=== PATIENT | female | born 1990 | race Caucasian/White ===

== ENCOUNTER 2022-10-21 16:01 | Outpatient (CLI) | payer OTHER, SELFPAY ==
[2022-10-21 20:18] LABS: Cholesterol 128 mg/dL (0-200); HDL Direct 59 mg/dL; Triglycerides 61 mg/dL (<150)
[2022-10-21 20:29] LABS: LDL Cholesterol Direct 49 mg/dL
[2022-10-21 20:49] LABS: Thyroid Stimulating Hormone 0.867 uIU/mL (0.465-4.680)
[2022-10-22 11:56] LABS: Folic Acid 5.8 ng/mL (2.76->20)
== END 2022-10-21 16:02 | disposition home or self-care (01) ==
LOC: ANHLAB 16:04
PROVIDERS: PCP Nurse Practitioner Family; Visit Provider Nurse Practitioner Family
DX: Z00.00 Encounter for general adult medical examination without abnormal findings (principal); Z13.6 Encounter for screening for cardiovascular disorders; Z13.29 Encounter for screening for other suspected endocrine disorder
CPT/HCPCS: 36415; 80061; 82607; 82746; 84443

== ENCOUNTER 2023-10-22 16:09 | Outpatient (CLI) | payer OTHER, SELFPAY ==
[2023-10-22 16:39] LABS: Appearance Urine Cloudy (Clear); Bacteria Urine None Seen /hpf; Basophils Percent Auto 0.4 % (0.2-1.2); Bilirubin Urine Negative (Negative); Color Urine Yellow (Yellow); Eosinophils Absolute Auto 0.1 K/mm3 (0-0.3); Eosinophils Percent Auto 0.8 % (0-4.4); Glucose Urine UA Negative (Negative); Hematocrit 44.2 % (37.0-47.0); Hemoglobin 14.7 g/dL (12.0-15.0); Immature Granulocyte Absolute 0.03 K/mm3 (0.00-0.031); Immature Granulocyte Percent A 0.4 % (0-0.5); Ketones Urine Negative (Negative); Leukocyte Esterase Ur Trace LEU/UL (NEGATIVE); Lymphocytes Percent Auto 24.7 % (18.3-44.2); Mean Corpuscular HGB Conc 33.3 g/dl (32-36); Mean Corpuscular Hemoglobin 30.1 pg (26-34); Mean Corpuscular Volume 90.4 fl (80-100); Mean Platelet Volume 11.1 fl (7.4-10.4); Monocytes Absolute Auto 0.6 K/mm3 (0.1-0.6); Monocytes Percent Auto 7.3 % (2.6-8.5); Neutrophils Absolute Auto 5.1 K/mm3 (1.3-6.7); Neutrophils Percent Auto 66.4 % (45.5-73.1); Nitrate Urine Negative (Negative); Non Pathogenic Casts 0-2; Platelet Count Result 249 k/mm3 (150-375); Protein Urine Negative (Negative); RBC Urine 21-50 /hpf (0-2); Red Blood Count 4.89 M/mm3 (4.2-5.4); Red Cell Distribution Width 12.7 % (11.5-14.5); Specific Grav Ur 1.018 (1.001-1.035); Squamous Epithelial Cell Urine Occasional /hpf (Few); White Blood Count 7.7 K/mm3 (4.5-10.0)
[2023-10-22 16:52] LABS: Add Urine Microscopic? YES
[2023-10-22 17:38] LABS: Vitamin D 25 Hydroxy 86.1 ng/mL
[2023-10-22 17:42] LABS: Alanine Aminotransferase 20 U/L (6-35); Albumin Level 4.5 g/dL (3.5-5.1); Alkaline Phosphatase 63 U/L (38-126); Anion Gap 9 mmol/L (8-16); Aspartate Amino Transferase 25 U/L (14-36); Bilirubin,Total 0.5 mg/dL (0.2-1.3); Blood Urea Nitrogen 9 mg/dL (7-17); Calcium 10.4 mg/dL (8.4-10.2); Carbon Dioxide 29 mmol/L (22-30); Chloride 102 mmol/L (98-107); Cholesterol 146 mg/dL (0-200); Estimated Glomerular Filt Rate > 60; Glucose 97 mg/dL (65-110); HDL Direct 64 mg/dL; Potassium 3.6 mmol/L (3.4-5.0); Sodium 140 mmol/L (137-145); Triglycerides 94 mg/dL (<150)
[2023-10-22 17:53] LABS: LDL Cholesterol Direct 66 mg/dL
[2023-10-22 18:11] LABS: Thyroid Stimulating Hormone 0.297 uIU/mL (0.465-4.680)
== END 2023-10-22 16:10 | disposition home or self-care (01) ==
LOC: ANHLAB 16:11
PROVIDERS: PCP Nurse Practitioner Family; Visit Provider Nurse Practitioner Family
DX: Z13.6 Encounter for screening for cardiovascular disorders (principal); E53.8 Deficiency of other specified B group vitamins; E55.9 Vitamin D deficiency, unspecified; Z13.0 Encounter for screening for diseases of the blood and blood-forming organs and certain disorders involving the immune mechanism; Z00.00 Encounter for general adult medical examination without abnormal findings; Z13.29 Encounter for screening for other suspected endocrine disorder
CPT/HCPCS: 36415; 80053; 80061; 81001; 82306; 82607; 84443; 85025

== ENCOUNTER 2023-10-28 15:47 | Outpatient (CLI) | payer OTHER, SELFPAY ==
[2023-10-28 18:50] LABS: Free T4 Free Thyroxine 1.04 ng/mL (0.78-2.19)
[2023-10-28 23:59] LABS: Thyroid Stimulating Hormone 0.531 uIU/mL (0.465-4.680)
[2023-10-29 00:10] LABS: Total Triiodothyronine (T3) 1.37 NG/ML (0.97-1.69)
== END 2023-10-28 15:48 | disposition home or self-care (01) ==
LOC: ANHLAB 15:48
PROVIDERS: PCP Nurse Practitioner Family; Visit Provider Nurse Practitioner Family
DX: R79.89 Other specified abnormal findings of blood chemistry (principal); E83.52 Hypercalcemia
CPT/HCPCS: 36415; 84439; 84443; 84480

== ENCOUNTER 2023-11-01 09:17 | Outpatient (CLI) | payer OTHER, SELFPAY ==
[2023-11-01 10:12] LABS: Parathyroid Intact 79.1 pg/mL (7.5-53.5)
== END 2023-11-01 09:18 | disposition home or self-care (01) ==
PROVIDERS: PCP Nurse Practitioner Family; Visit Provider Nurse Practitioner Family
DX: E83.52 Hypercalcemia (principal)
CPT/HCPCS: 36415; 82330; 83970

== ENCOUNTER 2023-11-08 17:55 | Emergency (ER) | payer OTHER, SELFPAY ==
[2023-11-08] VITALS (10 sets, daily range): BP systolic 128–133; BP diastolic 68–96; PULSE 79–114; RESP 13–23; TEMP 36.3; O2SAT 96–100
--- NOTE | ~2023-11-08 | XR_ITS ---
EXAMINATION: XR chest 2V Exam Date/Time: 11/08/2023 21:10 HSE COORDINATOR HISTORY: cp, PALPITATIONS Comparison: 09/13/2015. RESULT: Lines, tubes, and devices: None. Lungs and pleura: Clear. Cardiomediastinal silhouette: Stable. Other: No acute osseous or upper abdominal finding. IMPRESSION: No acute cardiopulmonary process. Reviewed, dictated and finalized at location K. COORDINATOR
--- NOTE | 2023-11-08 17:56 | ECG_ITS ---
Measurements Intervals [place] Rate: 115 P: 62 WA: 157 QRS: -57 QRSD: 91 T: 52 QT: 316 QTc: 437 Interpretive Statements SINUS TACHYCARDIA POSSIBLE LEFT ATRIAL ENLARGEMENT [-0.1mV P WAVE IN V1/V2] PATTERN CONSISTENT WITH PULMONARY DISEASE LEFT ANTERIOR FASCICULAR BLOCK [QRS AXIS <= -45, QR IN I, RS IN II] MINIMAL ST DEPRESSION [0.025+ mV ST DEPRESSION] BORDERLINE ECG NO PREVIOUS ECG AVAILABLE FOR COMPARISON Electronically Signed On 11-09-2023 18:09:17 BLACK TOP MACHINE OPERATOR by Cole Almonte M.D.
--- NOTE | 2023-11-08 21:00 | PC.NURSE ---
Pt walked through chest pain protocol. Pt asking that we do not start an iv at this time, would prefer if we need to, just to straight stick her for blood.
--- NOTE | 2023-11-08 21:02 | ED.GENADULT ---
HPI - General Adult General Chief complaint: Arrhythmia/Palpitations Stated complaint: heart racing Time Seen by Provider: 11/08/23 20:46 History of Present Illness HPI narrative: This is a 33-year-old female presenting to the ED with chief complaint heart racing. Patient has a history of anxiety. Over the last 2 months she has been seeing multiple specialists due to some medical problems including an abnormal pap smear, and abnormal TSH/PTH levels. Patient admits she has significant anxiety about her medical problems about seeing medical terminologist. This likely stems from diagnosis of rheumatic fever as a child which she has been following with Infectious Disease several times a year and has not had any recent issues. Patient has a history of anxiety but does not like to take medications. at this time the patient is having intermittent waves of anxiety depending which medical problem we were discussing. Between episodes she is asymptomatic. Patient denies fevers chills chest pain difficulty breathing, lower extremity edema, abdominal pain urinary symptoms or diarrhea. Related Data Home Medications Medication Instructions Recorded Confirmed amoxicillin 250 mg capsule 250 mg PO Q12H 02/12/22 10/22/23 cholecalciferol (vitamin D3) 125 125 mcg PO DAILY 10/21/22 10/22/23 mcg (5,000 unit) capsule mecobalamin (vitamin B12) 1,000 1,000 mcg PO DAILY 10/23/22 10/22/23 mcg chewable tablet levonorgestrel 21 mcg/24 hours (8 1 device intrauterine ONCE 10/22/23 10/22/23 yrs) 52 mg intrauterine device (Mirena) Allergies Allergy/AdvReac Type Severity Reaction Status Date / Time codeine Allergy Unknown Swelling Verified 10/22/23 14:41 of Lip/Tongue/Throat naproxen Allergy Unknown Gastrointestinal Verified 10/22/23 14:41 Upset PMFSH Past Medical History Medical History Atypical squamous cells cannot exclude high grade squamous intraepithelial lesion on cytologic smear of cervix (ASC-H) B12 deficiency Bronchitis Elevated parathyroid hormone Encounter for IUD insertion 11/14/07 Mirena insertion 12/29/12 Mirena removal/reinsertion 06/30/17 Mirena removal/reinsertion Encounter for IUD removal 12/29/12 Mirena removal/reinsertion 06/30/17 Mirena removal/reinsertion Encounter for screening examination for sexually transmitted disease Encounter to establish care Glaucoma Low TSH level Otitis media, left Otitis media, right Remove/insert IUD Rheumatic fever (~01/2016) antibiotic until age 41 Rheumatic fever nodule Serum calcium elevated Vertigo Vitamin D deficiency Surgical History Surgical History History of colposcopy (10/17/23) colpo History of gynecological procedure (07/02/22) mirena iud removal and insertion of new device History of local excision of skin lesion (03/11/11) excisional bx of left thigh lesion--skin tag, acrochordon Family History Family History Mother Hypertension Grandparent Diabetes mellitus maternal grandmother Father Hypertension Heart disease Social History Social History Smoking status: Former smoker Second hand tobacco smoke exposure: Yes Smoking end date: 09/15/14 Alcohol intake: current Alcohol use details: Occasionally 1-2 a month Substance use: never Substance use type: does not use Do You Feel Safe in your Home?: Yes Lack of Transportation: No Lack of Food: Never True Current Housing: I Have Housing Concerned About Future Housing: No Difficulty Paying Gas/Electric Bills: No Difficulty Paying for Meds: No Currently Unemployed: No Education: High School Diploma/GED Difficulty w/ Childcare or Family Care: No Living arrangements: other Additional living arrangements comments: Occupati
[2023-11-08] MEDS: LORazepam (*CRX) 0.5 MG TABLET PO (21:09)
== END 2023-11-08 23:37 | disposition home or self-care (01) ==
LOC: ANHED 21:48
PROVIDERS: Emergency Provider Emergency Medicine; PCP Nurse Practitioner Family
DX: F41.9 Anxiety disorder, unspecified (principal); E53.8 Deficiency of other specified B group vitamins; E55.9 Vitamin D deficiency, unspecified; H40.9 Unspecified glaucoma; Z97.5 Presence of (intrauterine) contraceptive device; Z87.891 Personal history of nicotine dependence
CPT/HCPCS: 71046; 93005; 99284; A9270

== ENCOUNTER 2024-01-26 17:46 | Outpatient (CLI) | payer OTHER, SELFPAY ==
[2024-01-26 18:21] LABS: D Dimer < 0.27 ug/mL (<0.48)
== END 2024-01-26 17:47 | disposition home or self-care (01) ==
PROVIDERS: PCP Nurse Practitioner Family
DX: R00.2 Palpitations (principal); R07.89 Other chest pain
CPT/HCPCS: 36415; 85380

== ENCOUNTER 2024-02-07 08:02 | Outpatient (CLI) | payer OTHER, SELFPAY ==
[2024-02-07 08:27] LABS: Basophils Percent Auto 0.3 % (0.2-1.2); Eosinophils Absolute Auto 0.1 K/mm3 (0-0.3); Eosinophils Percent Auto 1.3 % (0-4.4); Hematocrit 44.4 % (37.0-47.0); Hemoglobin 14.9 g/dL (12.0-15.0); Immature Granulocyte Absolute 0.02 K/mm3 (0.00-0.031); Immature Granulocyte Percent A 0.3 % (0-0.5); Lymphocytes Absolute Auto 1.43 K/mm3 (0.9-3.2); Lymphocytes Percent Auto 23.1 % (18.3-44.2); Mean Corpuscular HGB Conc 33.6 g/dl (32-36); Mean Corpuscular Volume 89.3 fl (80-100); Mean Platelet Volume 10.6 fl (7.4-10.4); Monocytes Absolute Auto 0.5 K/mm3 (0.1-0.6); Monocytes Percent Auto 7.4 % (2.6-8.5); Neutrophils Absolute Auto 4.2 K/mm3 (1.3-6.7); Neutrophils Percent Auto 67.6 % (45.5-73.1); Platelet Count Result 206 k/mm3 (150-375); Red Blood Count 4.97 M/mm3 (4.2-5.4); Red Cell Distribution Width 13.3 % (11.5-14.5); White Blood Count 6.2 K/mm3 (4.5-10.0)
[2024-02-07 08:45] LABS: Alanine Aminotransferase 19 U/L (6-35); Albumin Level 4.3 g/dL (3.5-5.1); Alkaline Phosphatase 64 U/L (38-126); Anion Gap 5 mmol/L (4-12); Aspartate Amino Transferase 22 U/L (14-36); Bilirubin,Total 0.6 mg/dL (0.2-1.3); Blood Urea Nitrogen 10 mg/dL (7-17); Calcium 9.9 mg/dL (8.4-10.2); Carbon Dioxide 27 mmol/L (22-30); Chloride 107 mmol/L (98-107); Cholesterol 130 mg/dL (0-200); Estimated Glomerular Filt Rate > 60; Glucose 101 mg/dL (65-110); HDL Direct 52 mg/dL; Magnesium 1.8 mg/dL (1.6-2.3); Potassium 4.4 mmol/L (3.4-5.0); Sodium 139 mmol/L (137-145); Triglycerides 42 mg/dL (<150)
[2024-02-07 08:56] LABS: LDL Cholesterol Direct 70 mg/dL
[2024-02-07 09:30] LABS: Hemoglobin A1C 5.1 % (<5.7)
== END 2024-02-07 08:03 | disposition home or self-care (01) ==
PROVIDERS: PCP Nurse Practitioner Family
DX: R00.2 Palpitations (principal)
CPT/HCPCS: 36415; 80053; 80061; 83036; 83735; 84443; 85025

== ENCOUNTER 2024-04-28 14:51 | Outpatient (CLI) | payer OTHER, SELFPAY ==
[2024-04-28 15:55] LABS: Anion Gap 10 mmol/L (4-12); Blood Urea Nitrogen 13 mg/dL (7-17); Calcium 9.7 mg/dL (8.4-10.2); Carbon Dioxide 24 mmol/L (22-30); Chloride 102 mmol/L (98-107); Estimated Glomerular Filt Rate > 60; Glucose 93 mg/dL (65-110); Magnesium 1.8 mg/dL (1.6-2.3); Phosphorus 2.9 mg/dL (2.5-4.5); Sodium 136 mmol/L (137-145)
[2024-04-28 16:07] LABS: Parathyroid Intact 85.9 pg/mL (7.5-53.5)
[2024-04-29 14:53] LABS: Ionized Calcium 5.5 mg/dL (4.7-5.5)
== END 2024-04-28 14:52 | disposition home or self-care (01) ==
LOC: ANHLAB 14:55
PROVIDERS: PCP Nurse Practitioner Family; Visit Provider Internal Medicine Endocrinology, Diabetes & Metabolism
DX: E83.52 Hypercalcemia (principal)
CPT/HCPCS: 36415; 80048; 82330; 83735; 83970; 84100

== ENCOUNTER 2024-11-13 10:09 | Outpatient (CLI) | payer OTHER, SELFPAY ==
[2024-11-13 10:51] LABS: Alanine Aminotransferase 25 U/L (6-35); Albumin Level 4.6 g/dL (3.5-5.1); Alkaline Phosphatase 69 U/L (38-126); Anion Gap 12 mmol/L (4-12); Aspartate Amino Transferase 25 U/L (14-36); Bilirubin,Total 0.8 mg/dL (0.2-1.3); Blood Urea Nitrogen 8 mg/dL (7-17); Calcium 10.2 mg/dL (8.4-10.2); Carbon Dioxide 23 mmol/L (22-30); Chloride 105 mmol/L (98-107); Estimated Glomerular Filt Rate > 60; Glucose 92 mg/dL (65-110); Magnesium 1.9 mg/dL (1.6-2.3); Phosphorus 3.2 mg/dL (2.5-4.5); Potassium 4.2 mmol/L (3.4-5.0); Sodium 140 mmol/L (137-145)
[2024-11-13 11:03] LABS: Parathyroid Intact 63.2 pg/mL (14.5-75.2)
[2024-11-15 12:08] LABS: Ionized Calcium 5.4 mg/dL (4.7-5.5)
== END 2024-11-13 10:10 | disposition home or self-care (01) ==
LOC: ANHLAB 10:14
PROVIDERS: Visit Provider Internal Medicine Endocrinology, Diabetes & Metabolism
DX: E21.0 Primary hyperparathyroidism (principal)
CPT/HCPCS: 36415; 80053; 82330; 83735; 83970; 84100

== ENCOUNTER 2024-11-15 15:04 | Outpatient (CLI) | payer OTHER, SELFPAY | END 2024-11-15 15:05 | disposition home or self-care (01) | LOC: ANHLAB 15:05 | PROVIDERS: Visit Provider Internal Medicine Endocrinology, Diabetes & Metabolism | DX: E83.52 Hypercalcemia (principal) | CPT/HCPCS: 82340 ==

== ENCOUNTER 2025-06-16 06:35 | Outpatient (CLI) | payer OTHER, SELFPAY ==
[2025-06-16 07:32] LABS: Hemoglobin A1C 5.4 % (<5.7)
[2025-06-16 07:34] LABS: Cholesterol 155 mg/dL (0-200); HDL Direct 61 mg/dL; Triglycerides 56 mg/dL (<150)
== END 2025-06-16 06:36 | disposition home or self-care (01) ==
DX: E66.9 Obesity, unspecified (principal)
CPT/HCPCS: 36415; 80061; 83036